=== PATIENT | male | born 1975 | race Caucasian/White ===

== ENCOUNTER 2020-01-07 22:17 | Emergency (ER) | payer BC, SELFPAY ==
[2020-01-07 22:24] VITALS: BP 129/88; PULSE 102; RESP 18; TEMP 36.2; O2SAT 98; BMI 28.1
[2020-01-07 22:45] VITALS: BP 150/94; PULSE 92; RESP 16; O2SAT 97
--- NOTE | 2020-01-07 22:46 | XR_ITS ---
WS: [id number] Exam: XR KUB [id number] Date/Time of Exam: 01/07/2020 10:46 PM Reason For Exam: left flank pain 3 mm left pelvic calcification is nonspecific. No other significant calcifications in the abdomen or pelvis. No bowel obstruction or free air. Visualized organ margins are intact. Moderate amount of sto ol in the colon. Regional bony elements are unremarkable. XR/XR KUB [id number] IMPRESSION: 1. 3 mm left pelvic calcification which is nonspecific. 2. No acute finding.
--- NOTE | 2020-01-07 22:46 | ED_ITS ---
HPI - Back Pain/Injury General: Chief Complaint: Back Pain/Injury Stated Complaint: backpain Time Seen by Provider: 01/07/20 22:22 Source: patient Mode of arrival: ambulatory Limitations: no limitations History of Present Illness: HPI Narrative: 44-year-old male patient presents to the emergency department with acute onset of back pain. He reports pain radiates on the left side to his left front abdomen. He denies fever chills, denies nausea vomiting. States was at work at onset of pain. Denies unusual heavy lifting or fall/trauma. Reports is healthy individual, does not take medication on a daily basis. Denies history of kidney stones. MD elicited complaint: back pain Onset (ago): hour(s) (5) Timing: intermittent Similar Symptoms Previously: No Quality: stabbing, aching and spasming Location: left flank and left upper back Radiation: abdomen (left) Relieving factors: immobilization Context: turning/twisting and bending Associated symptoms: Reports abdominal pain; Deny chills, dysuria, fever(s), nausea or vomiting Review of Systems General: Reports: 10 or more systems reviewed and unremarkable except in HPI and below Const: Denies: fever(s), chills or diaphoresis Eyes: Denies: blurry vision or eye redness ENMT: Denies: throat pain, dental pain or disequilibrium Card: Denies: chest pain, palpitations or irregular heart rhythm Resp: Denies: dyspnea, productive cough, non-productive cough or wheezing GI: Reports: abdominal pain; Denies: nausea, vomiting or constipation : Denies: difficulty urinating, dysuria or difficulty starting urination Musc: Reports: back pain; Denies: neck pain, muscle cramps or muscle weakness Skin/Breast: Denies: rash or pruritus Neuro: Denies: headache(s), weakness in extremities or behavioral changes Psych: Denies: anxiety or depression Yosef/Lymph: Denies: easy bruising Physical Exam Const: COMMON NORMALS: no acute distress, patient oriented x3, healthy appearing and alert GENERAL APPEARANCE: cooperative, comfortable and well hydrated HENMT: COMMON NORMALS: normocephalic, Normal external nose present and moist oral mucous membranes HEAD & SCALP: normocephalic NOSE: Normal external nose present Eye: COMMON NORMALS: Equal, round and reactive pupils present and EOMs intact bilaterally GENERAL EYE: appearance normal, both eyes and all related structures PUPIL: Yes Equal, round and reactive pupils present Neck/C-Spine: COMMON NORMALS: full ROM and no lymphadenopathy GENERAL: Yes normal visual inspection and Yes trachea midline CERVICAL SPINE: Yes cervical ROM normal Lymph: LYMPHATIC: no lymphadenopathy noted Chest: COMMONS NORMALS: normal inspection of the chest and normal palpation of entire chest wall Resp: COMMON NORMALS: normal respiratory effort and clear to auscultation bilaterally EFFORT & INSPECTION: Yes able to speak in complete sentences AUSCULTATION: clear to auscultation bilaterally Cardio: COMMON NORMALS: regular rhythm, S1 normal heart sound present, S2 normal heart sound present and Peripheral pulses 2+ throughout RHYTHM: regular rhythm HEART SOUNDS: S1 normal heart sound present and S2 normal heart sound present PERIPHERAL PULSES: Peripheral pulses 2+ throughout GI: COMMON NORMALS: Normal to inspection, nondistended, normoactive bowel sounds present and Soft to palpation INSPECTION: Yes normal to inspection PALPATION: Yes Soft to palpation and Yes Tenderness to palpation present (GI) Details: LUQ : COMMON NORMALS: Yes no CVA tenderness BLADDER/KIDNEY EXAM: Yes no CVA tenderness Back/Pelvis: COMMON NORMALS: no CVA tenderness, thoracic and lumbar spine normal to inspection and no thoracic nor lumbar tenderness GENERAL BACK: Yes CVA tenderness CVA tenderness: left THORACIC SPINE/UPPER BACK: Yes normal to inspection, Yes thoracic ROM normal, No thoracic spinal tenderness and No paraspinal muscle spasm LUMBAR SPINE/LOWER BACK: Yes normal to inspection, Yes lumbar ROM normal, No pain with ROM, No lumbar spinal tenderness and Yes straight leg raise positive left SACROILIAC JOINTS: Yes SI joints normal Extremity: COMMON NORMALS: normal to inspection and capillary refill normal Neuro: COMMON NORMALS: patient oriented x3 and no focal motor deficits SENSORIUM/ORIENTATION: Yes alert GAIT: Yes Normal gait present MOTOR EXAM: 5/5 motor strength present throughout Psych: COMMON NORMALS: mental status grossly normal, Normal thought process present and cooperative ACTIVITY/MOTOR BEHAVIOR: Yes appropriate eye contact THOUGHT PROCESS: Normal thought process present Skin: COMMON NORMALS: no rashes or lesions noted and turgor normal GENERAL SKIN EXAM: no rashes or lesions noted and turgor normal Course ED course: 44-year-old male patient presents to the emergency department with left mid back and left flank pain. Reports onset at work. Has worked at [employer] for 3 years, no change of duties or work activity. He denies fall trauma or previous back pain. Negative vertebral tenderness exam appreciated. KUB revealed questionable left calcification in the pubis. CT scan of the abdomen pelvis, renal stone protocol without acute abnormalities or stone appreciated. Urinalysis negative for UTI/hematuria, CBC unremarkable, chemistry without acute findings. Findings discussed with the patient, placed on cyclobenzaprine and ibuprofen for pain. Discussed with patient my findings consistent with muscle strain. Plan of care discussed along with need for follow-up. Patient advised to follow-up with his primary care provider if symptoms are not improved, advised to return to emergency department if he develops worsening symptoms. Questions were answered, verbalized understanding. Vital Signs: Vital signs: Vital Signs Temperature 97.2 F L 01/07/20 22:24 Pulse Rate 77 01/08/20 00:46 Respiratory Rate 16 01/07/20 22:45 Blood Pressure 117/71 01/08/20 00:46 Pulse Oximetry 99 01/08/20 00:46 MDM - Back Pain/Injury Lab Data: Labs: Lab Results 01/07/20 01/07/20 01/07/20 Range/Units 22:40 22:40 22:40 WBC 5.7 (4.0-10.0) 10^3/ uL RBC 5.19 (4.1-5.3) 10^6/u L Hgb 15.1 (11.7-16.6) g/dL Hct 45.5 (42.0-52.0) % MCV 87.7 (80-94) fL MCH 29.1 (28.0-34.0) pg MCHC 33.2 (30.0-36.0) g/dL RDW 12.1 (12.1-15.1) % Plt Count 264 (130-400) 10^3/c mm MPV 10.2 (7.4-10.4) fL Neut % (Auto) 57.7 % Lymph % (Auto) 34.3 % [place] % (Auto) 5.1 % Eos % (Auto) 1.8 % Baso % (Auto) 0.9 % Neut # (Auto) 3.26 (1.8-7.7) 10^3/u L Lymph # (Auto) 1.9 (0.8-4.8) 10^3/u L [place] # (Auto) 0.3 (0.2-0.9) 10^3/u L Eos # (Auto) 0.1 (0.0-0.8) 10^3/u L Baso # (Auto) 0.1 (0.0-0.1) 10^3/u L Nucleated RBC % (a uto) 0 % Nucleated RBCs # 0.0 /100WBC Sodium 139 (136-145) mmol/L Potassium 4.3 (3.5-5.1) mmol/L Chloride 103 (98-107) mmol/L Carbon Dioxide 27 (22-29) mmol/L Anion Gap 13.3 (5-19) BUN 14 (6-20) mg/dL Creatinine 0.8 (0.7-1.2) mg/dL GFR Calculation 106.0 (90-130) mL/min Glucose 100 (65-115) mg/dL Calculated Osmolal ity 289 (285-295) mOsm/k g Calcium 9.7 (8.5-10.5) mg/dL Total Bilirubin 0.3 (0.15-1.2) mg/dL AST 38 (0-40) U/L ALT 55 H (0-41) U/L Alkaline Phosphata se 97 (40-130) IU/L Total Protein 7.5 (6.6-8.7) g/dL Albumin 4.8 (3.5-5.2) g/dL Globulin 2.7 (1.3-4.6) g/dL Lipase 25 (13-60) U/L Urine Color Yellow (Yellow) Urine Appearance Clear (CLEAR) Urine pH 5.0 (5-7) Ur Specific Gravit y 1.025 (1.005-1.030) Urine Protein Neg (Negative) Urine Glucose (UA) Norm (Normal) Urine Ketones Negative (Negative) Urine Blood Neg (Negative) Urine Nitrate Negative (Negative) Urine Bilirubin Neg (Negative) Urine Urobilinogen Norm (Negative) mg/dL Ur Leukocyte Sandra ase Negative (Negative) Imaging Data^: CT Abd/Pel: Radiologist's impression: [address] [address] [address] Scan Report Signed Patient: Griffin Mancini Unit #: [id number] : 1975 Age/Sex: 44 / M ADM Date: 01/07/20 Loc: ER Room/Bed: Attending Dr: Ordering Provider/Ordering MD: Haylee Maier Date of Service: 01/07/20 Procedure(s): CT kidney stone 66233 Accession Number(s): [id number] Report Number: [id number] PROCEDURE INFORMATION: Exam: CT Abdomen And Pelvis Without Contrast Exam date and time: 01/07/2020 11:51 PM Age: 44 years old Clinical indication: Abdominal pain; Flank; Left; Additional info: Left flank pain TECHNIQUE: Imaging protocol: Computed tomography of the abdomen and pelvis without contrast. Radiation optimization: All CT scans at this facility use at least one of these dose optimization techniques: automated exposure control; mA and/or kV adjustment per patient size (includes targeted exams where dose is matched to clinical indication); or iterative reconstruction. COMPARISON: CR XR KUB [id number] 01/07/2020 10:52 PM RADIATION DOSE METRICS: Total DLP (mGy-cm): 1396.66 FINDINGS: Liver: Normal. No mass. Gallbladder and bile ducts: Normal. No calcified stones. No ductal dilation. Pancreas: Normal. No ductal dilation. Spleen: Normal. No splenomegaly. Adrenal glands: Normal. No mass. Kidneys and ureters: Normal. No hydronephrosis. Stomach and bowel: Unremarkable. No obstruction. No mucosal thickening. Appendix: No evidence of appendicitis. Intraperitoneal space: Unremarkable. No free air. No significant fluid collection. Vasculature: Unremarkable. No abdominal aortic aneurysm. Lymph nodes: Unremarkable. No enlarged lymph nodes. Urinary bladder: Unremarkable as visualized. Reproductive: Unremarkable as visualized. Bones/joints: Unremarkable. No acute fracture. Soft tissues: Unremarkable. CT/CT kidney stone [id number] IMPRESSION: Negative for acute inflammatory process in the abdomen or pelvis Radiation Dose CTDIVOL = (mGy): DLP = 1396.66 (mGy-cm) Dictated By: Oneil Sheppard MD Signed By: Oneil Sheppard MD Signed Date/Time: 01/08/2053 DD/ Discharge Plan Discharge Patient Disposition: Home Clinical Impression: Acute flank pain, Muscle strain Condition: Stable Prescriptions: New cyclobenzaprine 10 mg tablet 10 mg PO TID PRN (Reason: muscle spasm) Qty: 10 RF: 0 IBU 800 mg tablet 800 mg PO TID PRN (Reason: pain) Qty: 30 RF: 0 Discharge Orders: Discharge Order (Routine); Ordered 01/08/20 Ordered By: Haylee Maier Referrals: [facility] [Other] Discharge Diet: Usual diet Discharge Activity: Limit activity as instructed Patient Instructions: Muscle Strain (ED), Abdominal Pain (ED), Flank Pain (ED) Activity Restrictions/Additional Instructions: Return to the emergency department if you develop increased pain, blood in your urine, fever chills or nausea vomiting Warm compresses to the area as needed for pain No work tomorrow Avoid heavy lifting or strenuous activity for the next 24 hours Follow-up with your primary care provider in 5 to 7 days, sooner if worsening symptoms occur Stand Alone Forms: Work/School Release Coding Level of Care Code ED Car 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
[2020-01-07 23:08] LABS: Basophils # 0.1 10^3/uL (0.0-0.1); Basophils % 0.9 %; Eosinophils # 0.1 10^3/uL (0.0-0.8); Eosinophils % 1.8 %; Hematocrit 45.5 % (42.0-52.0); Hemoglobin 15.1 g/dL (11.7-16.6); Lymphocytes # 1.9 10^3/uL (0.8-4.8); Lymphocytes % 34.3 %; Mean Corpuscular HGB Conc 33.2 g/dL (30.0-36.0); Mean Corpuscular Hemoglobin 29.1 pg (28.0-34.0); Mean Corpuscular Volume 87.7 fL (80-94); Mean Platelet Volume 10.2 fL (7.4-10.4); Monocytes # 0.3 10^3/uL (0.2-0.9); Monocytes % 5.1 %; Neutrophils # 3.26 10^3/uL (1.8-7.7); Neutrophils % 57.7 %; Nucleated Red Blood Cells % 0 %; Platelet Count 264 10^3/cmm (130-400); Red Blood Count 5.19 10^6/uL (4.1-5.3); Red Cell Distribution Width 12.1 % (12.1-15.1); White Blood Count 5.7 10^3/uL (4.0-10.0)
[2020-01-07 23:16] LABS: Alanine Aminotransferase 55 U/L (0-41); Albumin Level 4.8 g/dL (3.5-5.2); Alkaline Phosphatase 97 IU/L (40-130); Anion Gap 13.3 (5-19); Aspartate Amino Transferase 38 U/L (0-40); Blood Urea Nitrogen 14 mg/dL (6-20); Calcium 9.7 mg/dL (8.5-10.5); Carbon Dioxide 27 mmol/L (22-29); Chloride 103 mmol/L (98-107); Globulin 2.7 g/dL (1.3-4.6); Glucose 100 mg/dL (65-115); Lipase 25 U/L (13-60); Osmolality Calculated 289 mOsm/kg (285-295); Potassium 4.3 mmol/L (3.5-5.1); Sodium 139 mmol/L (136-145); Total Bilirubin 0.3 mg/dL (0.15-1.2); Total Protein 7.5 g/dL (6.6-8.7)
[2020-01-07] MEDS: sodium chloride 0.9% 1,000 ML 999 ML IV (23:21)
[2020-01-07 23:27] LABS: Add Urine Microscopic? NO
--- NOTE | 2020-01-07 23:31 | CTR_ITS ---
PROCEDURE INFORMATION: Exam: CT Abdomen And Pelvis Without Contrast Exam date and time: 01/07/2020 11:51 PM Age: 44 years old Clinical indication: Abdominal pain; Flank; Left; Additional info: Left flank pain TECHNIQUE: Imaging protocol: Computed tomography of the abdomen and pelvis without contrast. Radiation optimization: All CT scans at this facility use at least one of these dose optimization techniques: automated exposure control; mA and/or kV adjustment per patient size (includes targeted exams where dose is matched to clinical indication); or iterative reconstruction. COMPARISON: CR XR KUB [id number] 01/07/2020 10:52 PM RADIATION DOSE METRICS: Total DLP (mGy-cm): 1396.66 FINDINGS: Liver: Normal. No mass. Gallbladder and bile ducts: Normal. No calcified stones. No ductal dilation. Pancreas: Normal. No ductal dilation. Spleen: Normal. No splenomegaly. Adrenal glands: Normal. No mass. Kidneys and ureters: Normal. No hydronephrosis. Stomach and bowel: Unremarkable. No obstruction. No mucosal thickening. Appendix: No evidence of appendicitis. Intraperitoneal space: Unremarkable. No free air. No significant fluid collection. Vasculature: Unremarkable. No abdominal aortic aneurysm. Lymph nodes: Unremarkable. No enlarged lymph nodes. Urinary bladder: Unremarkable as visualized. Reproductive: Unremarkable as visualized. Bones/joints: Unremarkable. No acute fracture. Soft tissues: Unremarkable. CT/CT kidney stone [id number] IMPRESSION: Negative for acute inflammatory process in the abdomen or pelvis Radiation Dose CTDIVOL = (mGy): DLP = 1396.66 (mGy-cm)
[2020-01-07 23:38] LABS: Bilirubin Urine Neg (Negative); Blood Urine Neg (Negative); Glucose Urine UA Norm (Normal); Ketones Urine Negative (Negative); Leukocyte Esterase Urine Negative (Negative); Nitrate Urine Negative (Negative); Protein Urine Neg (Negative); Specific Gravity, Urine 1.025 (1.005-1.030); Urine Appearance Clear (CLEAR); Urine Color Yellow (Yellow); Urobilinogen Urine Norm (Negative)
[2020-01-08 00:46] VITALS: BP 117/71; PULSE 77; O2SAT 99
[2020-01-08] MEDS: ketorolac 30 mg/mL INJ IVP (01:40)
[2020-01-08 01:44] VITALS: BP 112/74; PULSE 74; O2SAT 96
== END 2020-01-08 01:46 | disposition home or self-care (01) ==
PROVIDERS: Emergency Provider Nurse Practitioner Family
DX: R10.9 Unspecified abdominal pain (principal); S29.012A Strain of muscle and tendon of back wall of thorax, initial encounter; X58.XXXA Exposure to other specified factors, initial encounter
CPT/HCPCS: 12345; 74018; 74176; 80053; 81003; 83690; 85025; 96361; 96374; 99283; J1885; J7040

== ENCOUNTER 2021-05-03 09:36 | Emergency (ER) | payer SELFPAY ==
[2021-05-03 09:42] VITALS: BP 183/108; PULSE 106; RESP 18; TEMP 36.1; O2SAT 96; BMI 28.8
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
--- NOTE | 2021-05-03 09:45 | CT_ITS ---
WS: [id number] CT cervical spin wo con* [id number] REASON FOR EXAM: pain IV CONTRAST ADMINISTERED: Noncontrast TOTAL EXAM DLP: 703.[address] scans at [facility] use at least one of these dose optimization techniques: automat ed exposure control; mA and/or kV adjustment per patient size (includes targeted exams where dose is matched to clinical indication); or iterative reconstruction. FINDINGS: Normal cervical spine alignment. Normal odontoid and cervical vertebral bodies. Normal facet joints with normal alignment. No soft tissue abnormality or airway abnormality. CT/CT cervical spin wo con* [id number] IMPRESSION: No acute abnormality.
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
[2021-05-03 09:49] VITALS: BP 183/108; PULSE 104; RESP 16; O2SAT 94
[2021-05-03] MEDS: ondansetron 2 mg/ML SDV 2 mL 4 MG IVP (10:06)
[2021-05-03] MEDS: morphine 4 mg/mL SDV 1 mL IVP (10:06)
[2021-05-03 10:09] LABS: Basophils # 0.1 10^3/uL (0.0-0.1); Eosinophils # 0.1 10^3/uL (0.0-0.8); Hematocrit 45.4 % (42.0-52.0); Hemoglobin 15.6 g/dL (11.7-16.6); Lymphocytes # 2.5 10^3/uL (0.8-4.8); Lymphocytes % 34.5 %; Mean Corpuscular HGB Conc 34.4 g/dL (30.0-36.0); Mean Corpuscular Hemoglobin 29.2 pg (28.0-34.0); Mean Corpuscular Volume 84.9 fl (80-94); Mean Platelet Volume 10.4 fL (7.4-10.4); Monocytes # 0.4 10^3/uL (0.2-0.9); Monocytes % 5.3 %; Neutrophils # 4.13 10^3/uL (1.8-7.7); Neutrophils % 57.6 %; Nucleated Red Blood Cells % 0 %; Platelet Count 281 10^3/cmm (130-400); Red Blood Count 5.35 10^6/uL (4.1-5.3); Red Cell Distribution Width 12.1 % (12.1-15.1); White Blood Count 7.2 10^3/uL (4.0-10.0)
[2021-05-03 10:35] LABS: Alanine Aminotransferase 62 U/L (0-41); Albumin Level 4.8 g/dL (3.5-5.2); Alkaline Phosphatase 85 IU/L (40-130); Anion Gap 15.7 (5-19); Aspartate Amino Transferase 30 U/L (0-40); Blood Urea Nitrogen 13 mg/dL (6-20); Calcium 9.3 mg/dL (8.5-10.5); Carbon Dioxide 23 mmol/L (22-29); Chloride 106 mmol/L (98-107); Globulin 2.7 g/dL (1.3-4.6); Glomerular Filtration Rate 105.5 mL/min (90-130); Glucose 122 mg/dL (65-115); Osmolality Calculated 293 mOsm/kg (285-295); Potassium 3.7 mmol/L (3.5-5.1); Sodium 141 mmol/L (136-145); Total Bilirubin 0.4 mg/dL (0.15-1.2); Total Protein 7.5 g/dL (6.6-8.7)
[2021-05-03 11:37] VITALS: PULSE 90; RESP 16; O2SAT 95
--- NOTE | 2021-05-04 10:19 | DCPLANNER ---
Addendum entered by Eunice Laurent 05/10/21 09:40: Patient had a follow up appointment scheduled for 05.05.21 at ortho - patient did attend appointment. Original Note: associate manager had message to schedule a follow up appointment for patient with ortho. associate manager called the ortho clinic, spoke with Ani, gave clinic patients information. associate manager was told that patients information would be printed and reviewed. Clinic will call patient with appointment information.
== END 2021-05-03 11:43 | disposition home or self-care (01) ==
PROVIDERS: Emergency Provider Family Medicine
DX: S52.022A Displaced fracture of olecranon process without intraarticular extension of left ulna, initial encounter for closed fracture (principal); V28.4XXA Motorcycle driver injured in noncollision transport accident in traffic accident, initial encounter
CPT/HCPCS: 29105; 70450; 72125; 73080; 80053; 85025; 96374; 96375; 99283; J2270; J2405

== ENCOUNTER 2021-05-03 14:27 | Emergency (ER) | payer SELFPAY ==
--- NOTE | 2021-05-03 15:05 | XR_ITS ---
WS: [id number] XR hip BI 3-4V wo/w pel [id number] REASON FOR EXAM: pain FINDINGS: RIGHT HIP: No fracture or other focal bone lesion. Mild osteophyte formation and subchondral sclerosis in the acetabulum with mild narrowing of the hip joint space. Left iliac bone and superior and inferior pubic rami intact. LEFT HIP: No fracture or focal bone lesion of the left hip. 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 Healing fracture of the superior and inferior pubic rami. XR/XR hip BI 3-4V wo/w pel [id number] IMPRESSION: Subacute left pelvic fractures as above.
[2021-05-03 15:27] VITALS: BP 134/76; PULSE 94; RESP 18; TEMP 36.7; O2SAT 99; BMI 28.8
[2021-05-03 15:39] VITALS: BP 134/76; PULSE 94; RESP 18; TEMP 36.7; O2SAT 99
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
== END 2021-05-03 16:12 | disposition home or self-care (01) ==
PROVIDERS: Emergency Provider Family Medicine
DX: S52.022A Displaced fracture of olecranon process without intraarticular extension of left ulna, initial encounter for closed fracture (principal); S32.502A Unspecified fracture of left pubis, initial encounter for closed fracture; V28.4XXA Motorcycle driver injured in noncollision transport accident in traffic accident, initial encounter
CPT/HCPCS: 73522; 99282

== ENCOUNTER → 2021-05-05 00:01 | Outpatient (BNVA) | payer BC, SELFPAY | PROVIDERS: Referring Provider Family Medicine; Visit Provider Orthopaedic Surgery | DX: Z01.812 Encounter for preprocedural laboratory examination (principal); Z20.822 Contact with and (suspected) exposure to COVID-19; S52.023A Displaced fracture of olecranon process without intraarticular extension of unspecified ulna, initial encounter for closed fracture; X58.XXXA Exposure to other specified factors, initial encounter | CPT/HCPCS: 87635 ==

== ENCOUNTER 2021-05-06 12:19 | Day surgery (SDC) | payer BC, SELFPAY ==
[2021-05-05 14:05] VITALS: BMI 28.8
[2021-05-06] VITALS (12 sets, daily range): BP systolic 128–161; BP diastolic 87–98; PULSE 79–102; RESP 12–18; TEMP 36.1–37; O2SAT 94–99
--- NOTE | 2021-05-06 | SCC_ITS ---
Procedure done: Open reduction internal fixation left olecranon 16 seconds of fluoroscopic guidance, for a cumulative dose of 0.31 mGy, was provided to Dr. Love by the radiology department. C-arm images of the LEFT elbow were saved for the patient's permanent record. [facility]
--- NOTE | 2021-05-06 13:04 | ANES.PREANE2 ---
Pre-Anesthetic Assessment Height/Weight: Height 1.73 m Weight 86.183 kg Preop Diagnosis: Fracture Left olecranon Operation Date: 05/06/21 13:15 Proposed Procedures p ORIF olecranon left [id number](Left) - Zach Love MD Familial anesthetic complications: None Was Beta Adonay taken within 24 hours: N/A Last intake: Intake Last Liquid Date 05/05/21 Last Liquid Time 22:00 Last Solid Date 05/05/21 Last Solid Time 22:00 Social No alcohol and No tobacco Exam alert, oriented x 3, clear to auscultation bilaterally and regular rate & rhythm Airway Submandibular: within normal limits Cervical ROM: within normal limits Mallampati: Class II Dentition: chipped Comments: Comments: Missing teeth History/ROS No significant complaints Pulmonary None reported CV/HEM None reported None reported Hepatic None reported GI None reported Metabolic None reported Musc/skel None reported Neuropsych None reported Anesthetic Plan ASA status: 1 Anesthesia: Anesthesia Evaluation and General Other: We discussed risk and benefits of general anesthesia including PONV, sore throat (sometimes severe), corneal abrasion, positioning and peripheral nerve injuries, life threatening allergic reaction, post operative ICU admission requiring prolonged intubation, stroke, heart attack, , and rare incidences of recall. Patient consents to proceed with general anesthesia. Risk of > 500 ml blood loss (7ml/kg in children): No Medications/Allergies Home Medications Medication Instructions Recorded Confirmed Last Taken Type oxycodone 5 mg tablet 5 mg PO Q4H PRN 7 Days #40 tab 05/05/21 05/06/21 05/05/21 Rx Allergies Allergy/AdvReac Type Severity Reaction Status Date / Time No Known Allergies Allergy Verified 05/05/21 10:34 [facility] Anesthesia Medical History No significant past medical history Surgical History No pertinent past surgical history Social History Smoking and tobacco status: never smoked Data Anesthesia Cardiac Studies: No Data to Display
[2021-05-06] MEDS: sodium chloride 0.9% 1,000 ML 30 ML IV (13:16)
--- NOTE | 2021-05-06 15:42 | XR_ITS ---
WS: [id number] XR elbow LT 2V [id number] REASON FOR EXAM: OR PICS FINDINGS: Plate and screw fixation of comminuted olecranon fracture. Fracture fragments and surgical appliances are in proper position and alignment. XR/XR elbow LT 2V [id number] IMPRESSION: Intraoperative images demonstrating fixation of left olecranon fracture.
--- NOTE | 2021-05-06 15:53 | PM.OP ---
Operative Report Date of procedure: May 06, 2021 Pre-op diagnosis: Preop Diagnosis Fracture Left olecranon Post-op diagnosis: same Procedure done: Open reduction internal fixation left olecranon Implants: Pearl Varizx olecranon plate Pathology: none sent Surgeon: Zach Love Anesthesia: General Estimated blood loss (mL): 10 Tourniquet time (min): 80 Findings: The patient had a comminuted fracture of the left olecranon consisting of a small olecranon tip fracture, a larger medial wall fracture. And a small amount of lateral wall comminution in the area of the coronoid fossa Condition: stable Disposition: PACU Procedure: The patient was taken to the operating room and given a general anesthesia. He is given 2 g of Ancef and prepped and draped in the supine position with his arm free so that can be flexed over the body. A timeout was performed. A posterior incision was made along the proximal subcutaneous border of the ulna curving over the olecranon over a distance of approximately 8 cm. The triceps insertion on the distal fragment was split to allow better proximity of the plate to the olecranon. Revisional fixation of the medial wall fragment was made to the distal fragment with 2 Allis K wires. The distal fragment was then reduced to the shaft with a reduction clamp. The bariatrics plate was placed over the elbow and olecranon and fixed distally through the oblong hole. The plate was displaced distally providing compression across the fragment. Initially the most proximal hole was filled with a 60 mm screw passing beneath the articular surface of the coronoid and down the shaft. Position was verified under fluoroscopy. A second locking screw was then passed through the second most proximal hole with an additional point of fixation in that distal fragment. 1 additional short unicortical screw could be applied through the third hole before the drill encountered the initial long screw. 2 additional screws were placed to the distal portion of the plate securing fixation. Next all of guidewires were removed from the medial wall fragment. A medial to lateral compression screw was placed over drilling the medial fragment compressing that. Finally the area of a comminuted lateral blowout tissue was secured with a Ultratape suture passer around the fragments. The 2 ends of the suture were passed underneath the plate. Through the fourth hole a 10 mm locking screw was placed to provide a post for fixation. The sutures were passed around that screw beneath the plate and secured drawing the lateral comminution into position. Intraoperative images were obtained showing a reduction of the olecranon and acceptable position of the hardware. The elbow was irrigated with saline. Deep tissues were closed with 0 Vicryl subcutaneous tissues with 2-0 Vicryl. The skin was closed with skin cristiana. Xeroflo gauze, 4 x 4's, web roll, posterior splint and Amado wrap were applied. Patient was extubated taken to recovery in stable condition.
--- NOTE | 2021-05-06 16:01 | W.PM.OPSUD ---
Surgery/Procedure H&P Update DATE OF PROCEDURE: May 06, 2021 DATE H&P PERFORMED: 05/05/21 H&P UPDATE INFORMATION: I have reviewed H&P completed within last 30 days PREOP DIAGNOSIS: Fracture Left olecranon PLANNED PROCEDURE: Operation Date: 05/06/21 13:15 Proposed Procedures p ORIF olecranon left [id number](Left) - Zach Love MD
[2021-05-06] MEDS: fentaNYL 50 mcg/mL INJ 2mL IVP ×2 (16:06→16:14)
[2021-05-06] MEDS: oxyCODONE 5 mg IR Tab/Cap PO (16:59)
--- NOTE | 2021-05-06 16:59 | ANE.PACU2 ---
Inpatient post-anesthesia follow up: Airway intact: Yes Vital signs: Temperature 97 F Pulse Rate 102 Respiratory Rate 18 Blood Pressure 139/97 Pulse Oximetry 97 Oxygen Delivery Me thod Room Air Oxygen Flow Rate 2 Fraction of Inspir ed Oxygen Hydration adequate: Yes Nausea and vomiting: No Pain level: 1 Mental status: Baseline
== END 2021-05-06 17:26 | disposition home or self-care (01) ==
PROVIDERS: Visit Provider Orthopaedic Surgery
PROC: (CPT 24685; principal; 2021-05-06 13:05)
DX: S52.022A Displaced fracture of olecranon process without intraarticular extension of left ulna, initial encounter for closed fracture (principal); V29.49XA Motorcycle driver injured in collision with other motor vehicles in traffic accident, initial encounter
CPT/HCPCS: 24685; 73070; 76000; C1713; J0330; J0690; J1100; J1580; J2250; J2405; J2704; J3010; J7030

== ENCOUNTER → 2021-06-09 10:28 | Outpatient (BNVA) | payer BC, SELFPAY | PROVIDERS: Visit Provider Orthopaedic Surgery | DX: Z98.890 Other specified postprocedural states (principal); S52.023D Displaced fracture of olecranon process without intraarticular extension of unspecified ulna, subsequent encounter for closed fracture with routine healing; X58.XXXD Exposure to other specified factors, subsequent encounter | CPT/HCPCS: 73080 ==

== ENCOUNTER 2021-07-06 07:38 | Outpatient (RCR) | payer BC, SELFPAY | END 2021-07-20 23:59 | disposition home or self-care (01) | LOC: SOT 07:38 | PROVIDERS: Referring Provider Orthopaedic Surgery; Visit Provider Orthopaedic Surgery | DX: S52.022S Displaced fracture of olecranon process without intraarticular extension of left ulna, sequela (principal); X58.XXXS Exposure to other specified factors, sequela | CPT/HCPCS: 97110; 97140; 97166 ==

== ENCOUNTER 2021-11-29 08:11 | Emergency (ER) | payer BC, SELFPAY ==
[2021-11-29 08:19] VITALS: BP 138/90; PULSE 74; RESP 16; TEMP 36.8; O2SAT 99; BMI 27.0
--- NOTE | 2021-11-29 08:33 | XRR_ITS ---
PROCEDURE INFORMATION: Exam: XR Left Elbow Exam date and time: 11/29/2021 8:39 AM Age: 46 years old Clinical indication: Prior surgery; Patient HX: Prior FX of the left elbow. Hardware was inserted in April of this year. PT now has a knot on the posterior side that shows bruising and PT states that it is painful. PT states that the knot appeared yesterday; Additional info: Pain TECHNIQUE: Imaging protocol: Radiologic exam of the Left elbow. Views: 3 or more views. COMPARISON: CR XR elbow LT min 3V* [id number] 06/09/2021 10:37 AM FINDINGS: Bones/joints: Proximal ulnar plate and screw fixation hardware again noted. The 2nd most distal screw is posteriorly displaced by 5 to 8 mm. Lucency surrounding the distal margin of the screw related to loosening noted. No acute fracture or dislocation identified. Soft tissues: No elevated fat pad to suggest joint effusion is seen. XR/XR elbow LT min 3V* [id number] IMPRESSION: Loosening and displacement of a surgical screw likely corresponding to the reported palpable knot on the posterior side of the proximal forearm.
--- NOTE | 2021-11-29 08:47 | ED_ITS ---
HPI - Skin/Abscess/Foreign Bdy General: Chief complaint: Skin/Abscess/Foreign Body Stated complaint: Mass in left elbow Time Seen by Provider: 11/29/21 08:21 Source: patient Mode of arrival: ambulatory Limitations: no limitations History of Present Illness: 46-year-old male presents emergency room with complaint of a lump on the proximal ulna. He previously had an elbow fracture which she had a plate placed he noticed a lump the last few days no other recent trauma. No fall has not had any fever sweats or chills. This lump just came up over the last 2 days. Location: LUE Severity: mild Quality: aching Pain Consistency: intermittent Relieving factors: rest Exacerbating factors: palpation Context: none Associated symptoms: Deny arthralgias, chills, cough, fever(s), itching, myalgias, nausea, rigidity, short of breath or vomiting Treatments prior to arrival: none Review of Systems Const: Denies: fever(s) or chills ENMT: Denies: throat pain, ear or mastoid pain, nasal discharge or nasal congestion Card: Denies: chest pain, edema, dyspnea on exertion or orthopnea Resp: Denies: dyspnea, productive cough or non-productive cough GI: Denies: abdominal pain, nausea or vomiting : Denies: flank pain, difficulty urinating, dysuria, urinary frequency or urinary urgency Skin/Breast: Denies: rash or pruritus PFS ED PFSH: Medical History No significant past medical history Surgical History No pertinent past surgical history Social History Smoking and tobacco status: never smoked Physical Exam Const: COMMON NORMALS: no acute distress GENERAL APPEARANCE: cooperative and comfortable ORIENTATION/CONSCIOUSNESS: Yes awake, Yes oriented to person, Yes oriented to place and Yes oriented to time HENMT: COMMON NORMALS: normocephalic, atraumatic and hearing grossly normal bilaterally HEAD & SCALP: normocephalic and atraumatic Resp: COMMON NORMALS: normal respiratory effort, No retractions, No use of accessory muscles and clear to auscultation bilaterally AUSCULTATION: clear to auscultation bilaterally Cardio: COMMON NORMALS: regular rate, regular rhythm and No murmurs present (Cardio) RATE: regular rate RHYTHM: regular rhythm Extremity: OTHER: Palpable fluid-filled area on the proximal ulna on the left at its base there appears to be firm prominent nodule or mass. When x-rays compared to physical exam and believe it is a screw head that is backing out of the previous plate. Neuro: SENSORIUM/ORIENTATION: Yes oriented to person, Yes oriented to place and Yes oriented to time Skin: COMMON NORMALS: no rashes or lesions noted GENERAL SKIN EXAM: no rashes or lesions noted Course Vital Signs: Vital signs: Vital Signs Temperature 98.2 F 11/29/21 08:19 Pulse Rate 74 11/29/21 08:19 Respiratory Rate 16 11/29/21 08:19 Blood Pressure 138/90 11/29/21 08:19 Pulse Oximetry 99 11/29/21 08:19 Oxygen Delivery Me thod 11/29/21 08:19 MDM - Skin/Abscess/Foreign Bdy Medicial Decision Making Appears to be a screw from the fixation that was placed at the elbow that is become loose and is backing out. Will refer back to Ortho. Medical Records I reviewed the patient's medical records. Lab Data I reviewed the patient's lab results. Discharge Plan Discharge Patient Disposition: Home Clinical Impression: Loosening of orthopedic screw Condition: Stable Prescriptions: No Action oxycodone 5 mg tablet 5 mg PO Q4H PRN (Reason: pain) 7 Days Qty: 40 0RF Discharge Orders: Discharge ED (Routine); Ordered 11/29/21 Ordered By: Agustín Brooks Patient Instructions: Opioid Safety, Pain Management Activity Restrictions/Additional Instructions: Case management make arrangements for a follow-up with orthopedics. Coding Level of Care Code ED Vp Software Support for Gulshan Fwd Exam Detailed
--- NOTE | 2021-11-29 10:56 | PC.SOCIAL ---
Addendum entered by Eunice Laurent 12/08/21 13:17: global implementation manager received the following message from the ortho clinic regarding follow up appointment: No vm/mailed pt a letter to schedule with Dr. Kate FORD global implementation manager called phone number [phone] - this was a non working number. Original Note: Ortho F/u Message sent to ortho clinic requesting f/u appointment. Clinic will contact patient with appointment date and time.
== END 2021-11-29 09:20 | disposition home or self-care (01) ==
PROVIDERS: Emergency Provider Family Medicine
DX: T84.428A Displacement of other internal orthopedic devices, implants and grafts, initial encounter (principal)
CPT/HCPCS: 73080; 99283

== ENCOUNTER 2022-01-20 09:03 | Day surgery (SDC) | payer BC, SELFPAY ==
[2022-01-20] VITALS (10 sets, daily range): BP systolic 102–144; BP diastolic 63–95; PULSE 65–79; RESP 12–18; TEMP 36.2–37; O2SAT 94–98
--- NOTE | 2022-01-20 09:57 | ANES.PREANE2 ---
Pre-Anesthetic Assessment Height/Weight: Height 1.73 m Weight 81.647 kg Temp Pulse Resp BP Pulse Ox O2 Del Method 97.2 F L 78 16 144/87 96 01/20/22 09:51 01/20/22 09:51 01/20/22 09:51 01/20/22 09:51 01/20/22 09:51 01/20/22 09:51 Preop Diagnosis: Painful hardware left elbow Operation Date: 01/20/22 10:30 Proposed Procedures p hardware removal left elbow/ S52.023A T84.84XA(Left) - Zach Love MD Familial anesthetic complications: None Was Beta Adonay taken within 24 hours: N/A Was Clonidine taken within 24 hours: N/A Last intake: Intake Last Liquid Date 01/19/22 Last Liquid Time 20:30 Last Solid Date 01/19/22 Last Solid Time 20:30 Social No alcohol and No tobacco Exam alert, oriented x 3, clear to auscultation bilaterally and regular rate & rhythm Airway Mallampati: Class II Dentition: chipped History/ROS No significant history except as noted Anesthetic Plan ASA status: 1 Anesthesia: General Risk of > 500 ml blood loss (7ml/kg in children): No Medications/Allergies Home Medications Medication Instructions Recorded Confirmed Last Taken Type No Known Home Medications 12/28/21 01/19/22 Unknown History Allergies Allergy/AdvReac Type Severity Reaction Status Date / Time No Known Allergies Allergy Verified 01/20/22 09:50 [facility] Anesthesia Medical History No significant past medical history Surgical History No pertinent past surgical history Social History Smoking and tobacco status: never smoked Data Anesthesia Cardiac Studies: No Data to Display
[2022-01-20] MEDS: sodium chloride 0.9% 1,000 ML 30 ML IV (09:59)
[2022-01-20] MEDS: ceFAZolin 2,000 MG in sodium chloride 0.9% (plus) 50 ML 100 MG IV (11:54)
--- NOTE | 2022-01-20 11:59 | W.PM.OPSUD ---
Surgery/Procedure H&P Update DATE OF PROCEDURE: January 20, 2022 DATE H&P PERFORMED: 12/28/21 H&P UPDATE INFORMATION: I have reviewed H&P completed within last 30 days PREOP DIAGNOSIS: Painful hardware left elbow PLANNED PROCEDURE: Operation Date: 01/20/22 10:30 Proposed Procedures p hardware removal left elbow/ 20659 S52.023A T84.84XA(Left) - Zach Love MD
--- NOTE | 2022-01-20 12:38 | PM.OP ---
Operative Report Date of procedure: January 20, 2022 Pre-op diagnosis: Preop Diagnosis Painful hardware left elbow Post-op diagnosis: same Procedure done: Removal hardware left elbow Pathology: none sent Surgeon: Zach Love Estimated blood loss (mL): 10 Tourniquet time (min): 25 Findings: The patient had the previously placed olecranon hardware with 1 prominent screw. The fracture appeared to be healed. There is no purulent or necrotic bone Condition: stable Brief History: The patient is a 46-year-old male who previously underwent open reduction internal fixation of a left olecranon fracture on 05/06/2021. He developed a prominent screw however radiographs revealed apparent union of the fracture. He was a scheduled for a hardware removal limiting pain. Procedure: Griffin was taken to the operating room and given a general anesthesia. He was prepped and draped in the supine position with his left arm flexed over his bod. A timeout was performed. The elbow was approached through the previous posterior scar. I dissection was carried down with a scalpel blade and cautery revealing the plate. The prominent screw was immediately identified and removed with a screwdriver. Utilizing a [place] scar tissue could be removed from the plate medially and laterally. All screws were removed including a previous interfragmentary medial to lateral screw. Prominent bone about the plate holes was removed with a rongeur. The deep fascia and subcutaneous tissues were closed with 2-0 Vicryl. The skin was closed with skin cristiana. Sterile dressings were applied. The patient was extubated and taken to recovery room in stable condition. Will be placed in a sling in PACU.
--- NOTE | 2022-01-20 12:56 | P.PCN_ITS ---
PACU note Narrative: VSS, Good respiratory effort, report to DUSTER TENDER Exam: awake
--- NOTE | 2022-01-20 12:56 | PM.PACU ---
PACU note Narrative: VSS, Good respiratory effort, report to CLOTH CUTTER Exam: awake
--- NOTE | 2022-01-20 14:09 | PC.NURSE ---
Per Dr. Love's instruction, informed [facility] pharmacist for [facility] to cancel RX for hydrocodone as well as Percocet. Dr. Love sent RX of Percocet to [facility], per pt request. Informed pt.
--- NOTE | 2022-01-20 15:51 | ANE.PACU2 ---
Inpatient post-anesthesia follow up: Airway intact: Yes Vital signs: Temperature 97.6 F Pulse Rate 79 Respiratory Rate 16 Blood Pressure 139/93 Pulse Oximetry 98 Oxygen Delivery Me thod Room Air Oxygen Flow Rate 6 Fraction of Inspir ed Oxygen Hydration adequate: Yes Nausea and vomiting: No Pain level: 1 Mental status: Baseline
== END 2022-01-20 13:50 | disposition home or self-care (01) ==
PROVIDERS: Visit Provider Orthopaedic Surgery
PROC: (CPT 20680; principal; 2022-01-20 10:20)
DX: T84.84XA Pain due to internal orthopedic prosthetic devices, implants and grafts, initial encounter (principal)
CPT/HCPCS: 20680; J0690; J1100; J1580; J2250; J2405; J2704; J3010; J7030